=== PATIENT | female | born 1965 | race African-American/Black ===

== ENCOUNTER 2023-01-21 00:46 | Emergency (ER) | payer OTHER, MEDICAID ==
[~2023-01-21] VITALS: Ht 157.5 cm; Wt 62.0 kg
[2023-01-21] MEDS ORDERED: HYDROCODONE/ACETAMINOPHEN 5/325MG TABLET PO ONE (01:30)
[2023-01-21 01:40] VITALS: BP 176/63; PULSE 88; RESP 18; TEMP 98.2; O2SAT 98
[2023-01-21] MEDS ORDERED: IBUP-2029 MT (01:48)
[2023-01-21] MEDS ORDERED: HYDR-4001 MT (01:48)
== END 2023-01-21 02:38 | disposition home or self-care (01) ==
LOC: ER 00:46
DX: S62.102A Fracture of unspecified carpal bone, left wrist, initial encounter for closed fracture (principal); I10 Essential (primary) hypertension; W01.0XXA Fall on same level from slipping, tripping and stumbling without subsequent striking against object, initial encounter; Y93.9 Activity, unspecified; Y92.89 Other specified places as the place of occurrence of the external cause; Y99.8 Other external cause status
CPT/HCPCS: 29125; 73110; 99283